=== PATIENT | male | born 1955 | race Hispanic/Latino ===

== ENCOUNTER 2019-10-13 | Emergency (ER) | payer BC | END 2019-10-14 03:35 | disposition home or self-care (01) | DX: A09 Infectious gastroenteritis and colitis, unspecified (principal); R73.9 Hyperglycemia, unspecified; R50.81 Fever presenting with conditions classified elsewhere; R94.5 Abnormal results of liver function studies; Z87.891 Personal history of nicotine dependence ==

== ENCOUNTER 2024-05-07 22:39 | Emergency (ER) | payer BC, OTHER ==
[~2024-05-07] VITALS: Ht 172.7 cm; Wt 86.6 kg
[2024-05-07 22:54] LABS: ADD UA MICROSCOPIC YES; APPEARANCE,URINE CLEAR (CLEAR); BILIRUBIN,URINE NEGATIVE (NEGATIVE); COLOR,URINE YELLOW (YELLOW); GLUCOSE, URINE (UA) NEGATIVE (NEGATIVE); KETONES,URINE NEGATIVE (NEGATIVE); LEUKOCYTE ESTERASE ,URINE NEGATIVE Leu/uL (NEGATIVE); NITRATE,URINE NEGATIVE (NEGATIVE); OCCULT BLOOD,URINE NEGATIVE (NEGATIVE); PH,URINE 6.5 (5.0-8.0); PROTEIN,URINE 30 mg/dL (NEGATIVE); UROBILINOGEN,URINE >=8.0 mg/dL (0.2-1.0)
[2024-05-07 22:56] LABS: BACTERIA,URINE FEW /HPF (None Seen); MUCUS,URINE RARE LPF (None Seen); SQUAMOUS EPITHELIAL CELL,UR RARE /HPF (0-2); UNCLASSIFIED CRYSTAL 1 /HPF (None Seen)
--- NOTE | 2024-05-07 23:08 | NUR ---
BLADDER SCANNER DONE AT BEDSIDE X 3 WITH RESULTS: 0ML, 0ML, 10ML. RESULTS REPORTED TO DR. MONTAGUE
[2024-05-07] MEDS ORDERED: AMOX1TAB16 PO (23:15)
[2024-05-07] MEDS ORDERED: NYST15CR39 TP (23:15)
--- NOTE | 2024-05-07 23:16 | ERN ---
General Chief Complaint: Painful Urination Stated Complaint: C/O PAIN WITH BURNING WHEN VOIDING X 1 WK Time Seen by MD: 22:42 History of Present Illness Initial Comments 68-year-old male presents for dysuria and urgency. Patient reports that: Months ago he had UTI symptoms. He took a course antibiotics, his symptoms improved but have since returned. He went to his PCP a few days ago and started on Bactrim. He reports that she has dysuria of the distal tip of his penis with urination. No vomiting. No fevers. No suprapubic pain. No flank pain. No other complaints. Allergies: Coded Allergies: No Known Allergies (Unverified Allergy, Unknown, 05/07/24) Past Medical History Past Medical History: High Cholesterol Past Surgical History: None ROS Dictation CONSTITUTIONAL: No chills, no fever, no weakness, no diaphoresis, no malaise. HEAD/FACE: No signs of trauma. EENT: No eye pain, no blurred vision, no tearing, no double vision, no ear pain, no ear discharge, no nose pain, no nasal congestion, no throat pain, no throat swelling, no mouth pain. RESPIRATORY: No cough, no orthopnea, no SOB, no stridor, no wheezing. CARDIOVASCULAR: No chest pain, no edema, no palpitations, no syncope. GASTROINTESTINAL/ABDOMINAL: No abdominal pain, no constipation, no diarrhea, no nausea, no vomiting. GENITOURINARY: Urgency, dysuria MUSCULOSKELETAL: No back pain, no gout, no joint pain, no joint swelling, no muscle pain, no muscle stiffness, no neck pain. INTEGUMENTARY: No change in color, no change in hair/nails, no dryness, no lesion, no lumps, no rash. NEUROLOGICAL/PSYCH: No anxiety, not depressed, no emotional problem, no headache, no numbness, no pre-existing deficit, no history of seizures, no tremors, no weakness. HEMATOLOGIC/LYMPHATIC: Not anemic, no history of blood clots, no apparent blee ding, no bruising, glands not swollen. All Systems Negative, Except as Noted. Physical Exam Physical Exam Dictation VITAL SIGNS: Reviewed. GENERAL APPEARANCE: Alert, oriented x3, no acute distress HEAD AND FACE: Non-traumatic. EYES: PERRL, pink conjunctivas, eyelid no trauma, anterior chamber clear. EARS: Pinnas intact and no signs of trauma or erythema. Ear canals clear and no discharge. TMs no erythema. NOSE: No discharge, no bleeding. OROPHARYNX: Mouth normal, teeth no caries, tongue pink. Pharynx clear, no erythema. Tonsils no exudates, no abscesses noted. Mucous membrane moist. NECK: Supple, non-tender, no thyromegaly, no masses, no JVD, no bruits. BREAST: Deferred. CHEST: No tenderness, no crepitus, no paradoxical movement, no retractions. LUNGS: Clear, well-ventilated, symmetric, no rales, no wheezing, no rhonchi, no stridor, good breath sounds bilaterally. HEART: Regular rate, regular rhythm, no murmur, no gallops. VASCULAR: No peripheral edema. ABDOMEN: Soft, positive bowel sounds, nondistended, no guarding, nontender, no rebound, no masses no hepatomegaly, no splenomegaly, no Reyes's sign, no hernias. RECTAL: Deferred. GENITAL: Deferred. NEUROLOGICAL: Normal speech, gross motor function intact, gross sensory function intact. MUSCULOSKELETAL: Neck nontender, full range of motion, back nontender, full range of motion. EXTREMITIES: Nontender, full range of motion. SKIN: Color pink, dry, no turgor, no rash, no lacerations, no abrasions, no contusions. LYMPHATICS: Deferred. Results Laboratory and Microbiology Lab and Micro Result Laboratory Tests Test 05/07/24 22:46 Urine Color YELLOW (YELLOW) Urine Appearance CLEAR (CLEAR) Urine pH 6.5 (5.0-8.0) Urine Specific [place] 1.029 (1.001-1.031) Urine Protein 30 mg/dL (NEGATIVE) H Urine Glucose (UA) NEGATIVE mg/dL (NEGATIVE) Urine Ketones NEGATIVE mg/dL (NEGATIVE) Urine Occult Blood NEGATIVE (NEGATIVE) Urine Nitrate NEGATIVE (NEGATIVE) Urine Bilirubin NEGATIVE mg/dL (NEGATIVE) Urine Urobilinogen >=8.0 mg/dL (0.2-1.0) H Urine Leukocyte Esterase NEGATIVE Odette/uL Urine RBC 2-5 /HPF (0-1) H Urine WBC 2-5 /HPF (0-1) H Urine Squamous Epithelial Cells RARE /HPF (0-2) Urine Other Crystals (Auto) 1 /HPF (None Seen) Urine Bacteria FEW /HPF (None Seen) MDM CC: Dysuria and urgency and frequency Historian: Patient Comorbidities: None Limitations by social determinants of health: None Vital signs are stable Differential diagnosis: UTI, stone, prostatitis, pyelonephritis, sepsis, balanitis, other. Urinalysis does show some WBCs and few bacteria otherwise unremarkable Given a dose of Rocephin here in the ER. We will recommend he stops the Bactrim and will start him on Augmentin. We will also give him short course of nystatin. ED Course Orders Procedure Category Date Status Time Urinalysis Profile LAB 05/07/24 Complete 22:46 Ceftriaxone 1g Vial PHA 05/07/24 Verified (Rocephine 1g Inj) 23:30 Vital Signs Date Time Temp Pulse Resp B/P (MAP) Pulse Ox O2 Delivery O2 Flow Rate FiO2 05/07/24 23:01 77 18 136/81 97 Room Air* 0 21 05/07/24 22:42 97.3 82 18 172/98 97 Room Air DX & DISP Disposition: Discharge Departure Impression: Primary Impression: UTI (urinary tract infection) Additional Impression: Dysuria Condition: Stable Scripts Amoxicillin/Potassium Clav (Amox Tr-K Clv 875-125 mg Tab) 875 Mg-125 Mg Tablet 1 TAB PO BID for 10 Days, #20 TAB 0 Refills Prov: DANICA MONTAGUE DO 05/07/24 Nystatin (Nystatin) 100,000 Unit/Gram Cream.gm. 1 APPL TP TID for 5 Days, #15 GM 0 Refills apply to affected area(s) Prov: DANICA MONTAGUE DO 05/07/24 Additional Instructions: Your urinalysis is consistent with a urinary tract infection. Stopped taking the antibiotic that you currently taking. I have prescribed amoxicillin/clavulanic acid. Start taking this medication as prescribed. You can also take [id number] [place] 0. You can take [id number] ibuprofen for pain or discomfort. I have prescribed nystatin cream. Apply this 3 times a day to the tip of your penis. Please follow up with your primary doctor. Referrals: OMKAR PARKINSON MD (PCP) DANICA MONTAGUE DO May 07, 2024 23:16
[2024-05-07] MEDS: cefTRIAXone 1G VIAL IM ONE (23:35)
[2024-05-07 23:47] VITALS: BP 134/79; PULSE 77; RESP 18; TEMP 97.3; O2SAT 97
== END 2024-05-07 23:48 | disposition home or self-care (01) ==
LOC: EDH 22:39
DX: N39.0 Urinary tract infection, site not specified (principal); R30.0 Dysuria; E78.00 Pure hypercholesterolemia, unspecified
CPT/HCPCS: 99284; 81001; 96372; J0696

== ENCOUNTER 2024-09-14 22:08 | Emergency (ER) | payer OTHER ==
[~2024-09-14] VITALS: Ht 170.2 cm; Wt 86.2 kg
[~2024-09-14 22:08] MED LIST: AMOX1TAB16 PO; NYST15CR34 TP
[2024-09-14 22:10] VITALS: BP 164/94; PULSE 82; RESP 16; TEMP 98.1
--- NOTE | 2024-09-14 22:13 | NUR ---
UA CUP PROVIDED
--- NOTE | 2024-09-15 00:14 | NUR ---
PT SITTING IN LOBBY BY VENDING MACHINES, CALM, ON PHONE, GOOD EVEN CHEST RISE AND FALL OBSERVED
[2024-09-15 00:29] LABS: APPEARANCE,URINE CLEAR (CLEAR); BILIRUBIN,URINE NEGATIVE (NEGATIVE); COLOR,URINE LIGHT-YELLOW (YELLOW); GLUCOSE, URINE (UA) TRACE mg/dL (NEGATIVE); KETONES,URINE NEGATIVE (NEGATIVE); LEUKOCYTE ESTERASE ,URINE NEGATIVE Leu/uL (NEGATIVE); NITRATE,URINE NEGATIVE (NEGATIVE); OCCULT BLOOD,URINE NEGATIVE (NEGATIVE); PROTEIN,URINE NEGATIVE (NEGATIVE)
[2024-09-15 00:30] LABS: ADD UA MICROSCOPIC YES
[2024-09-15] MEDS ORDERED: CIPR-278 PO (01:02)
--- NOTE | 2024-09-15 01:04 | ERN ---
ED Note History of Present Illness Stated Complaint: BURING WITH URINATION Chief Complaint: Painful Urination Time Seen by MD: 22:38 Time Seen by Midlevel: 22:40 Dictation: 69-YEAR-OLD MALE WITH A HISTORY OF CHOLESTEROL AND DIABETES COMING IN WITH COMP LAINTS OF DYSURIA FOR ONE YEAR. PATIENT STATES HE HAS SEEN BY HIS PCP IN THEY CAN NOT FIND ANYTHING. PATIENT STATES HE WENT ON MONDAY AND THEY WANT TO REFER HIM TO A UROLOGIST. DENIES ANY FEVER, NAUSEA, VOMITING, FLANK PAIN. Allergies: Coded Allergies: No Known Allergies (Unverified Allergy, Unknown, 05/07/24) Home Meds Active Scripts Amoxicillin/Potassium Clav (Amox Tr-K Clv 875-125 mg Tab) 875 Mg-125 Mg Tablet, 1 TAB PO BID for 10 Days, #20 TAB 0 Refills Prov:DANICA MONTAGUE DO 05/07/24 Nystatin (Nystatin) 100,000 Unit/Gram Cream.gm., 1 APPL TP TID for 5 Days, #15 GM 0 Refills apply to affected area(s) Prov:DANICA MONTAGUE DO 05/07/24 Past Medical History Past Medical History: High Cholesterol Surgical History: None Review of System Dictation CONSTITUTIONAL: NEGATIVE FOR FEVER,CHILLS, AND WEIGHT LOSS EYES: NEGATIVE FOR INJURY, PAIN,REDNESS, AND DISCHARGE ENT: NEGATIVE FOR INJURY,PAIN OR SWELLING CARDIOVASCULAR: NEGATIVE FOR CHEST PAIN, PALPITATIONS, AND EDEMA RESPIRATORY: NEGATIVE FOR SHORTNESS OF BREATH, COUGH, AND WHEEZING, ABDOMEN/GI: NEGATIVE FOR ABDOMINAL PAIN, NAUSEA, VOMITING, DIARRHEA, AND CONSTIPATION BACK: NEGATIVE FOR INJURY AND PAIN : COMPLAINING OF BURNING SENSATION WHEN HE URINATES MS/EXTREMITY: NEGATIVE FOR INJURY AND DEFORMITY SKIN: NEGATIVE FOR RASH, AND DISCOLORATION NEURO: NEGATIVE FOR HEADACHE, WEAKNESS, NUMBNESS, TINGLING, AND SEIZURE PSYCH: NEGATIVE FOR SUICIDE IDEATION, HOMICIDAL IDEATION, AND HALLUCINATIONS Review of Systems: was completed Initial Vital Sign VS Vital Signs Date Time Temp Pulse Resp B/P (MAP) Pulse Ox O2 Delivery O2 Flow Rate FiO2 09/14/24 22:10 98.1 82 16 164/94 99 Room Air Physical Exam Dictation GENERAL: AWAKE, ALERT, NAD HEAD/FACE: NORMOCEPHALIC, ATRAUMATIC EYES: PERRL, EOMI, VISION AT BASELINE ENT: ORAL CAVITY CLEAR, TMS CLEAR, NO SIGNS OF INFECTION NECK: TRACHEA MIDLINE, SUPPLE, NO NUCHAL RIGIDITY CARDIOVASCULAR: RRR, NORMAL S1/S2, NO MRGS, NO JVD RESPIRATORY: CTAB, NO RESPIRATORY DISTRESS, NO RALES OR WHEEZES ABDOMEN: SOFT, NON-TENDER, NON-DISTENDED, NORMAL BOWEL SOUNDS, NO GUARDING OR REBOUND. SKIN: WARM, DRY, NORMAL TURGOR, NO RASH MS/EXTREMITY: PULSES EQUAL, NO CYANOSIS, NEUROVASCULAR INTACT, FROM NEURO: COAX4, GCS 15, STRENGTH 5/5, CN 2-12 INTACT, NORMAL CEREBELLAR EXAM, NORMAL GAIT, PSYCH: NORMAL BEHAVIOR, MOOD, AND AFFECT NORMAL Results (Laboratory/Radiology) Laboratory/Radiology Laboratory Tests Test 09/15/24 00:14 Urine Color LIGHT-YELLOW (YELLOW) Urine Appearance CLEAR (CLEAR) Urine pH 6.0 (5.0-8.0) Urine Specific [place] 1.012 (1.001-1.031) Urine Protein NEGATIVE mg/dL (NEGATIVE) Urine Glucose (UA) TRACE mg/dL (NEGATIVE) H Urine Ketones NEGATIVE mg/dL (NEGATIVE) Urine Occult Blood NEGATIVE (NEGATIVE) Urine Nitrate NEGATIVE (NEGATIVE) Urine Bilirubin NEGATIVE mg/dL (NEGATIVE) Urine Urobilinogen 2.0 mg/dL (0.2-1.0) H Urine Leukocyte Esterase NEGATIVE Odette/uL Urine RBC 2-5 /HPF (0-1) H Urine WBC 2-5 /HPF (0-1) H Urine Bacteria None /HPF (None Seen) Labs Reviewed?: Yes ED Course ED Course Orders Procedure Category Date Status Time Vital Signs Per CPOE 09/14/24 Transmitted Routine 22:10 Urinalysis Profile LAB 09/14/24 Complete 22:10 Vital Signs Date Time Temp Pulse Resp B/P (MAP) Pulse Ox O2 Delivery O2 Flow Rate FiO2 09/14/24 22:10 98.1 82 16 164/94 99 Room Air Medical Decision Making MDM MDM: 69-YEAR-OLD MALE WITH A HISTORY OF CHOLESTEROL AND DIABETES COMING IN WITH COMPLAINTS OF DYSURIA FOR ONE YEAR. PATIENT STATES HE HAS SEEN BY HIS PCP IN THEY CAN NOT FIND ANYTHING. PATIENT STATES HE WENT ON MONDAY AND THEY WANT TO REFER HIM TO A UROLOGIST. DENIES ANY FEVER, NAUSEA, VOMITING, FLANK PAIN. UA SHOWS NO EVIDENCE OF URINARY TRACT INFECTION. PATIENT WILL BE DISCHARGED WITH [facility] AND FOLLOW UP WITH UROLOGIST SCHEDULED. DIFFERENTIAL DIAGNOSIS: UTI, HEMATURIA, RATIONALE: TESTS CONSIDERED AND ORDERED SECONDARY TO SHARED DECISION MAKING INCLUDE: PREVIOUS OUTSIDE RECORDS REVIEWED: OLD ER VISITS. RISK OF COMPLICATION AND/OR MORBIDITY OR MORTALITY OF PATIENT MANAGEMENT: NONE MEDICATIONS-PER MEDICATION RECONCILIATION NEED FOR HOSPITALIZATION: PATIENT DOES NOT MEET CRITERIA FOR HOSPITALIZATION. NEED FOR EMERGENCY MAJOR/MINOR SURGERY: NO THERE ARE NO SOCIAL CONCERNS WITH THIS PATIENT. PRESCRIPTION DRUG MANAGEMENT PRESCRIPTIONS WILL INCLUDE SYMPTOMATIC CARE PATIENT'S PRIOR EXTERNAL MEDICAL RECORDS FROM OTHER ER VISITS WERE REVIEWED BY ME INDICATED. PRIOR TESTING AND RESULTS FROM PREVIOUS VISITS WERE REVIEWED. PRIOR TESTS WERE TAKEN INTO ACCOUNT WITH MEDICAL DECISION MAKING AND RESOURCE UTILIZATION, INDEPENDENT HISTORIAN/HISTORIANS WERE USED TO OBTAIN COMPLETE MEDICAL HISTORY. I INDEPENDENTLY INTERPRETED THE TEST THAT WERE PERFORMED, RESULTS WERE REVIEWED BY ME AND CONSIDERED FINDINGS ON RADIOLOGY IF ORDERED. MEDICAL MANAGEMENT AND EXAMINATION INTERPRETATION DISCUSSIONS WERE HAD BY ME WITH OTHER QUALIFIED HEALTHCARE PROFESSIONALS INDICATED FOR THE PATIENT'S CARE. DX & DISP Disposition: Discharge Departure Impression: Primary Impression: Dysuria Additional Impression: Cystitis Condition: Stable Scripts Ciprofloxacin HCl (Cipro) 500 Mg Tablet 1 TAB PO BID for 5 Days, #20 TAB 0 Refills Prov: ARCELIA ESTEBAN NP 09/15/24 Additional Instructions: FOLLOW UP WITH THE UROLOGIST. TAKE THE MEDICATIONS PRESCRIBED. IF YOU DEVELOP ANY FEVERS, ABDOMINAL PAIN, NAUSEA OR VOMITING RETURN BACK TO THE ER. Referrals: ALISSA BLUNT M.D. (PCP) I have reviewed the case, and I agree with, Diagnosis and Plan ARCELIA ESTEBAN NP September 15, 2024 01:04
== END 2024-09-15 01:24 | disposition home or self-care (01) ==
LOC: EDH 22:08
DX: N30.90 Cystitis, unspecified without hematuria (principal); E78.00 Pure hypercholesterolemia, unspecified; Z79.899 Other long term (current) drug therapy
CPT/HCPCS: 81001; 99283